=== PATIENT | female | born 1975 | race Caucasian/White ===

== ENCOUNTER 2022-12-08 17:45 | Emergency (ER) | payer MEDICAID ==
[~2022-12-08] VITALS: Ht 167.6 cm; Wt 65.9 kg
[2022-12-08 17:47] VITALS: BP 133/63
[2022-12-08 19:20] LABS: BASOPHILS % (AUTO) 0.2 % (0.0-2.0); EOSINOPHILS % (AUTO) 0.6 % (1.0-6.0); HEMATOCRIT 27.2 % (36-46); HEMOGLOBIN 9.1 g/dL (12.0-16.0); LYMPHOCYTES # (AUTO) 0.8 K/uL (1.0-4.8); LYMPHOCYTES % (AUTO) 22.6 % (22.0-44.0); MEAN CORPUSCULAR HGB CONC 33.5 G/dL (31.0-37.0); MEAN CORPUSCULAR VOLUME 105 fL (80-100); MONOCYTES # (AUTO) 0.4 K/uL (0.1-1.0); MONOCYTES % (AUTO) 13.3 % (2.0-9.0); NEUTROPHILS # (AUTO) 2.1 K/uL (1.8-7.7); NEUTROPHILS % (AUTO) 63.3 % (40.0-70.0); PLATELET COUNT (AUTO) 59 K/uL (150-450); RED CELL DISTRIBUTION WIDTH 16.7 % (11.5-14.5)
[2022-12-08 19:23] LABS: ANION GAP 5 mmol/L (8-16); CALCIUM, TOTAL 8.9 mg/dL (8.8-10.5); CARBON DIOXIDE 26 mmol/L (22-29); CHLORIDE 107 mmol/L (98-107); CREATININE 0.85 mg/dL (0.60-1.30); GLOMERULAR FILTR. RATE CALC > 60 mL/min (>60); GLUCOSE,RANDOM 95 mg/dL (70-110); POTASSIUM 4.2 mmol/L (3.5-5.1); SODIUM SERUM 138 mmol/L (136-145); UREA NITROGEN, BLOOD 12 mg/dL (7-18)
[2022-12-08 19:28] LABS: ALANINE AMINOTRANSFERASE 36 U/L (12-78); ALBUMIN 3.2 g/dL (3.4-5.0); ALKALINE PHOSPHATASE 200 U/L (46-116); ASPARTATE AMINOTRANSFERASE 58 U/L (15-37); BILIRUBIN,TOTAL 1.2 mg/dL (0.1-1.0); TOTAL PROTEIN, SERUM 7.5 g/dL (6.4-8.2)
[2022-12-08] MEDS ORDERED: FURO20TA4 PO (21:01)
[2022-12-08] MEDS ORDERED: CIPR500T10 PO (21:01)
[2022-12-08] MEDS ORDERED: MULT-1366 PO (21:01)
[2022-12-08] MEDS ORDERED: HYDR-4527 PO (21:01)
[2022-12-08] MEDS ORDERED: FOLI-130 PO ×2 (21:01→21:53)
[2022-12-08] MEDS ORDERED: PANT40TA54 PO (21:01)
[2022-12-08] MEDS ORDERED: SPIR50TA27 PO ×2 (21:01→21:53)
[2022-12-08] MEDS ORDERED: ONDA4TAB96 PO (21:01)
[2022-12-08] MEDS ORDERED: LORazepam 1 MG TABLET PO ONE (21:45)
[2022-12-08] MEDS ORDERED: OLANZapine 5 MG TABLET PO ONE (21:45)
[2022-12-08] MEDS ORDERED: FURO20 PO (21:53)
[2022-12-08] MEDS ORDERED: PANT-31 PO (21:53)
[2022-12-08] MEDS ORDERED: PERCT PO (21:53)
[2022-12-08] MEDS ORDERED: PHYT100T PO (21:53)
[2022-12-08] MEDS ORDERED: ESCI5TAB16 PO (21:53)
[2022-12-08] MEDS ORDERED: ONDA-104 PO (21:53)
[2022-12-08] MEDS ORDERED: THIA100T80 PO (21:53)
[2022-12-09] MEDS ORDERED: GABA-1216 PO (14:58)
[2022-12-09] MEDS ORDERED: NALO0.4V7 MISC (14:58)
[2022-12-09] MEDS ORDERED: RIFAX550 PO (14:58)
[2022-12-09] MEDS ORDERED: LACT10SO85 PO (14:58)
[2022-12-09] MEDS ORDERED: AMYL1CAP63 PO (14:58)
[2022-12-09] MEDS ORDERED: CHOL400C8 PO (14:58)
[2022-12-09] MEDS ORDERED: NALO4SPR NASAL (17:27)
[2022-12-09] MEDS ORDERED: OXYC10TA48 PO (17:31)
== END 2022-12-08 22:26 | disposition home or self-care (01) ==
LOC: EMS 17:45
DX: F69 Unspecified disorder of adult personality and behavior (principal); F32.9 Major depressive disorder, single episode, unspecified; K74.60 Unspecified cirrhosis of liver; D61.818 Other pancytopenia; Z96.649 Presence of unspecified artificial hip joint; Z88.0 Allergy status to penicillin
CPT/HCPCS: 99283; 80053; 85025; G0480

== ENCOUNTER 2022-12-09 14:44 | Emergency (ER) | payer MEDICAID ==
[~2022-12-09] VITALS: Ht 167.6 cm; Wt 72.7 kg
[~2022-12-09 14:44] MED LIST: CIPR500T10 PO; ESCI5TAB16 PO; FOLI-130 PO; FURO20 PO; FURO20TA4 PO; HYDR-4527 PO; MULT-1366 PO; ONDA-104 PO; ONDA4TAB96 PO; PANT-31 PO; PANT40TA54 PO; PERCT PO; PHYT100T PO; SPIR50TA27 PO; THIA100T80 PO
[2022-12-09] MEDS ORDERED: GABA-1216 PO (14:58)
[2022-12-09] MEDS ORDERED: NALO0.4V7 MISC (14:58)
[2022-12-09] MEDS ORDERED: LACT10SO85 PO (14:58)
[2022-12-09] MEDS ORDERED: AMYL1CAP63 PO (14:58)
[2022-12-09] MEDS ORDERED: CHOL400C8 PO (14:58)
[2022-12-09] MEDS ORDERED: RIFAX550 PO (14:58)
[2022-12-09] MEDS ORDERED: NALO4SPR NASAL (17:27)
[2022-12-09] MEDS ORDERED: OXYC10TA48 PO (17:31)
[2022-12-09 17:50] VITALS: BP 122/72
== END 2022-12-09 18:20 | disposition home or self-care (01) ==
LOC: EMS 14:44
DX: M25.552 Pain in left hip (principal); M25.551 Pain in right hip; G89.29 Other chronic pain; Z96.649 Presence of unspecified artificial hip joint; Z88.0 Allergy status to penicillin; Z88.8 Allergy status to other drugs, medicaments and biological substances
CPT/HCPCS: 99283; Z7502

== ENCOUNTER 2022-12-13 14:45 | Emergency (ER) | payer MEDICAID ==
[~2022-12-13] VITALS: Ht 167.6 cm; Wt 65.9 kg
[~2022-12-13 14:45] MED LIST changes: +AMYL1CAP63 PO; +CHOL400C8 PO; -FURO20 PO; +GABA-1216 PO; +LACT10SO85 PO; +NALO0.4V7 MISC; +NALO4SPR NASAL; -ONDA-104 PO; +OXYC10TA48 PO; +RIFAX550 PO
[2022-12-13 14:46] VITALS: BP 111/73
[2022-12-13] MEDS ORDERED: OxyCODONE HCL/ACETAMINOPHEN 5-325 MG TABLET PO ONE (15:30)
== END 2022-12-13 15:40 | disposition home or self-care (01) ==
LOC: EMS 14:45
DX: M25.562 Pain in left knee (principal); G89.4 Chronic pain syndrome; K76.9 Liver disease, unspecified; Z98.890 Other specified postprocedural states; Z88.0 Allergy status to penicillin; Z76.5 Malingerer [conscious simulation]; Z88.8 Allergy status to other drugs, medicaments and biological substances
CPT/HCPCS: 99283

== ENCOUNTER 2023-09-29 22:25 | Emergency (ER) | payer MEDICAID ==
[~2023-09-29] VITALS: Ht 167.6 cm; Wt 72.0 kg
[~2023-09-29 22:25] MED LIST changes: +CHLO10CA7 PO; +CHOL10CA2 PO; -CHOL400C8 PO; -CIPR500T10 PO; -NALO0.4V7 MISC; -OXYC10TA48 PO
[2023-09-29 23:55] LABS: BASOPHILS % (AUTO) 0.6 % (0.0-2.0); EOSINOPHILS % (AUTO) 1.1 % (1.0-6.0); HEMATOCRIT 34.7 % (36-46); HEMOGLOBIN 11.1 g/dL (12.0-16.0); LYMPHOCYTES % (AUTO) 25.7 % (22.0-44.0); MEAN CORPUSCULAR HEMOGLOBIN 29.5 pg (26.0-34.0); MEAN CORPUSCULAR HGB CONC 31.9 G/dL (31.0-37.0); MEAN CORPUSCULAR VOLUME 93 fL (80-100); MONOCYTES # (AUTO) 0.4 K/uL (0.1-1.0); MONOCYTES % (AUTO) 5.5 % (2.0-9.0); NEUTROPHILS # (AUTO) 5.2 K/uL (1.8-7.7); NEUTROPHILS % (AUTO) 67.1 % (40.0-70.0); PLATELET COUNT (AUTO) 139 K/uL (150-450); RED BLOOD CELL COUNT(AUTO) 3.75 MIL/uL (4.00-5.20); RED CELL DISTRIBUTION WIDTH 21.8 % (11.5-14.5); WHITE BLOOD COUNT (AUTO) 7.8 K/uL (4.5-11.0)
[2023-09-30 00:07] LABS: ANION GAP 13 mmol/L (8-16); CALCIUM, TOTAL 8.1 mg/dL (8.8-10.5); CARBON DIOXIDE 22 mmol/L (22-29); CHLORIDE 105 mmol/L (98-107); GLOMERULAR FILTR. RATE CALC > 60 mL/min (>60); GLUCOSE,RANDOM 128 mg/dL (70-110); POTASSIUM 3.6 mmol/L (3.5-5.1); SODIUM SERUM 140 mmol/L (136-145); UREA NITROGEN, BLOOD 8 mg/dL (7-18)
[2023-09-30 00:13] LABS: ALANINE AMINOTRANSFERASE 28 U/L (12-78); ALBUMIN 2.9 g/dL (3.4-5.0); ALKALINE PHOSPHATASE 432 U/L (46-116); ASPARTATE AMINOTRANSFERASE 48 U/L (15-37); BILIRUBIN,TOTAL 1.3 mg/dL (0.1-1.0); TOTAL PROTEIN, SERUM 7.7 g/dL (6.4-8.2)
[2023-09-30 00:18] LABS: ALCOHOL, BLOOD (SERUM) 377 mg/dL (0-10)
[2023-09-30 00:23] LABS: LIPASE 39 U/L (16-77)
[2023-09-30] MEDS: MAGNESIUM SULFATE 2 GM, MVI, ADULT NO.1 WITH VIT K 10 ML, THIAMINE 100 MG, FOLIC ACID 1... IV ONE (01:54)
[2023-09-30 06:22] LABS: AMPHET/METH SCREEN,URINE NEGATIVE (NEGATIVE); BARBITURATE SCREEN, URINE NEGATIVE (NEGATIVE); BENZODIAZEPINES SCREEN,URINE POSITIVE (NEGATIVE); CANNABINOID SCREEN,URINE NEGATIVE (NEGATIVE); COCAINE SCREEN,URINE NEGATIVE (NEGATIVE); METHADONE SCREEN, URINE NEGATIVE (NEGATIVE); OPIATE SCREEN,URINE NEGATIVE (NEGATIVE); PHENCYCLIDINE SCREEN,URINE NEGATIVE (NEGATIVE)
[2023-09-30 06:31] LABS: ALCOHOL, URINE DRUG SCREEN POSITIVE (NEGATIVE)
[2023-09-30] MEDS ORDERED: QUET25TA PO (06:47)
[2023-09-30 06:54] LABS: INFLUENZA A-RTPCR,COMBO NEGATIVE (NEGATIVE); INFLUENZA B-RTPCR,COMBO NEGATIVE (NEGATIVE); RESPIRATORY SYNCYTIAL VRS-PCR NEGATIVE (NEGATIVE); SARS COVID19 RTPCR, COMBO NEGATIVE (NEGATIVE)
[2023-09-30 09:42] VITALS: BP 105/54; PULSE 92; RESP 16; TEMP 98.7
[2023-09-30] MEDS: IBUPROFEN 600 MG TABLET PO ONE (09:59)
[2023-09-30] MEDS: ONDANSETRON HCL 4 MG TABLET PO ONE (09:59)
== END 2023-09-30 12:53 | disposition home or self-care (01) ==
LOC: EMS 22:25
DX: F10.229 Alcohol dependence with intoxication, unspecified (principal); R45.851 Suicidal ideations; F17.210 Nicotine dependence, cigarettes, uncomplicated; G89.29 Other chronic pain; Z98.890 Other specified postprocedural states; Z88.0 Allergy status to penicillin; Z88.8 Allergy status to other drugs, medicaments and biological substances; Z20.822 Contact with and (suspected) exposure to COVID-19; Y90.9 Presence of alcohol in blood, level not specified
CPT/HCPCS: 99291; 0241U; 80053; 83690; 85025; 36415; 80307; 96365; G0480; J3490 ×2; Q0162; J3411; J3475; J7030

== ENCOUNTER 2024-02-28 00:09 | Emergency (ER) | payer MEDICAID ==
[~2024-02-28 00:09] MED LIST changes: -AMYL1CAP63 PO; -CHLO10CA7 PO; -ESCI5TAB16 PO; -FOLI-130 PO; -FURO20TA4 PO; -GABA-1216 PO; -HYDR-4527 PO; -LACT10SO85 PO; -NALO4SPR NASAL; -ONDA4TAB96 PO; -PANT-31 PO; -PERCT PO; -PHYT100T PO; -RIFAX550 PO; -SPIR50TA27 PO; +SULF-261 PO; -THIA100T80 PO
[2024-02-28 01:00] VITALS: TEMP 97.3
[2024-02-28 01:15] LABS: BASOPHILS % (AUTO) 0.5 % (0.0-2.0); EOSINOPHILS % (AUTO) 0.9 % (1.0-6.0); HEMATOCRIT 34.1 % (36-46); HEMOGLOBIN 11.3 g/dL (12.0-16.0); LYMPHOCYTES # (AUTO) 1.2 K/uL (1.0-4.8); LYMPHOCYTES % (AUTO) 19.8 % (22.0-44.0); MEAN CORPUSCULAR HEMOGLOBIN 34.3 pg (26.0-34.0); MEAN CORPUSCULAR VOLUME 104 fL (80-100); MONOCYTES # (AUTO) 0.7 K/uL (0.1-1.0); MONOCYTES % (AUTO) 11.9 % (2.0-9.0); NEUTROPHILS # (AUTO) 4.1 K/uL (1.8-7.7); NEUTROPHILS % (AUTO) 66.9 % (40.0-70.0); PLATELET COUNT (AUTO) 168 K/uL (150-450); RED BLOOD CELL COUNT(AUTO) 3.29 MIL/uL (4.00-5.20); WHITE BLOOD COUNT (AUTO) 6.1 K/uL (4.5-11.0)
[2024-02-28 01:20] LABS: ANION GAP 12 mmol/L (8-16); CARBON DIOXIDE 25 mmol/L (22-29); CHLORIDE 99 mmol/L (98-107); CREATININE 0.71 mg/dL (0.60-1.30); GLOMERULAR FILTR. RATE CALC > 60 mL/min (>60); GLUCOSE,RANDOM 115 mg/dL (70-110); LIPASE 21 U/L (16-77); POTASSIUM 3.7 mmol/L (3.5-5.1); SODIUM SERUM 136 mmol/L (136-145); UREA NITROGEN, BLOOD 2 mg/dL (7-18)
[2024-02-28 01:22] LABS: ALCOHOL, BLOOD (SERUM) 167 mg/dL (0-10)
[2024-02-28 01:29] LABS: LACTIC ACID 1.7 mmol/L (0.4-2.0)
[2024-02-28] MEDS: MAGNESIUM SULFATE 2 GM, MVI, ADULT NO.1 WITH VIT K 10 ML, THIAMINE 100 MG, FOLIC ACID 1... IV ONE (01:33)
[2024-02-28] MEDS: ONDANSETRON HCL 4 MG/2 ML VIAL IVP ONE ×2 (01:34→05:16)
[2024-02-28] MEDS: LORazepam 2 MG/ML VIAL IVP ONE ×2 (01:34→05:16)
[2024-02-28 02:01] LABS: RBC MORPHOLOGY COMMENT ABNORMAL RBC MORPH
[2024-02-28] MEDS ORDERED: IOHEXOL 350 MG/ML 100 ML VIAL ONE (03:35)
[2024-02-28] MEDS ORDERED: SODIUM CHLORIDE 0.9% 100 ML ONE (03:35)
[2024-02-28 05:00] VITALS: BP 109/64; PULSE 89; RESP 16
[2024-02-28 05:35] LABS: ALANINE AMINOTRANSFERASE 47 U/L (12-78); ALBUMIN 2.9 g/dL (3.4-5.0); ALKALINE PHOSPHATASE 745 U/L (46-116); ASPARTATE AMINOTRANSFERASE 98 U/L (15-37); BILIRUBIN,TOTAL 2.1 mg/dL (0.1-1.0); TOTAL PROTEIN, SERUM 8.3 g/dL (6.4-8.2)
== END 2024-02-28 07:10 | disposition admitted as inpatient to this hospital (09) ==
LOC: EMS 00:09 → EDBEDREQ 04:58 → EMS 07:10
DX: R55 Syncope and collapse (principal); K70.30 Alcoholic cirrhosis of liver without ascites; K29.20 Alcoholic gastritis without bleeding; F10.239 Alcohol dependence with withdrawal, unspecified; I85.00 Esophageal varices without bleeding; K21.9 Gastro-esophageal reflux disease without esophagitis; G89.29 Other chronic pain; F17.210 Nicotine dependence, cigarettes, uncomplicated; Z88.0 Allergy status to penicillin
CPT/HCPCS: 99285; 74177; 96365; 96375; 71045; 80048; 80076; 83605; 83690; 84703; 85025; 36415; 93005; 96376; G0480; Q9967; J2060; J3490 ×2; J2405; J3411; J3475; J7030; J7050

== ENCOUNTER 2024-09-04 09:59 | Emergency (ER) | payer MEDICAID ==
[~2024-09-04] VITALS: Ht 167.6 cm; Wt 63.6 kg
[~2024-09-04 09:59] MED LIST changes: +PANT-31 PO; -PANT40TA54 PO; -SULF-261 PO
[2024-09-04] MEDS ORDERED: FURO40TA5 PO (10:05)
[2024-09-04] MEDS ORDERED: SPIR50TA27 PO (10:05)
[2024-09-04] MEDS ORDERED: PANT40TA54 PO (10:05)
[2024-09-04] MEDS ORDERED: THIA100T92 PO (10:05)
[2024-09-04] MEDS ORDERED: ESCI5TAB16 PO (10:05)
[2024-09-04] MEDS ORDERED: OXYC5TAB3 PO (10:05)
[2024-09-04] MEDS ORDERED: QUET25TA36 PO (10:05)
[2024-09-04 10:09] VITALS: BP 122/84; PULSE 106; RESP 18; TEMP 98.2; O2SAT 99
[2024-09-04 11:50] LABS: BASOPHILS % (AUTO) 0.3 % (0.0-2.0); EOSINOPHILS % (AUTO) 0 % (1.0-6.0); HEMATOCRIT 31.3 % (36-46); HEMOGLOBIN 10.2 g/dL (12.0-16.0); LYMPHOCYTES # (AUTO) 0.6 K/uL (1.0-4.8); LYMPHOCYTES % (AUTO) 10.7 % (22.0-44.0); MEAN CORPUSCULAR HEMOGLOBIN 31.2 pg (26.0-34.0); MEAN CORPUSCULAR HGB CONC 32.5 G/dL (31.0-37.0); MEAN CORPUSCULAR VOLUME 96 fL (80-100); MONOCYTES # (AUTO) 0.4 K/uL (0.1-1.0); MONOCYTES % (AUTO) 7.3 % (2.0-9.0); NEUTROPHILS # (AUTO) 4.4 K/uL (1.8-7.7); NEUTROPHILS % (AUTO) 81.7 % (40.0-70.0); PLATELET COUNT (AUTO) 123 K/uL (150-450); RED BLOOD CELL COUNT(AUTO) 3.26 MIL/uL (4.00-5.20); RED CELL DISTRIBUTION WIDTH 20.5 % (11.5-14.5); WHITE BLOOD COUNT (AUTO) 5.4 K/uL (4.5-11.0)
[2024-09-04 11:56] LABS: ANION GAP 17 mmol/L (8-16); CALCIUM, TOTAL 8.1 mg/dL (8.8-10.5); CARBON DIOXIDE 19 mmol/L (22-29); CHLORIDE 102 mmol/L (98-107); CREATININE 0.79 mg/dL (0.60-1.30); GLOMERULAR FILTR. RATE CALC > 60 mL/min (>60); GLUCOSE,RANDOM 106 mg/dL (70-110); POTASSIUM 3.8 mmol/L (3.5-5.1); SODIUM SERUM 138 mmol/L (136-145); UREA NITROGEN, BLOOD 9 mg/dL (7-18)
[2024-09-04 12:10] LABS: ALCOHOL, BLOOD (SERUM) 304 mg/dL (0-10)
[2024-09-04] MEDS: THIAMINE 100 MG TABLET PO ONE (12:59)
== END 2024-09-04 13:17 | disposition home or self-care (01) ==
LOC: EMS 10:00
DX: F10.229 Alcohol dependence with intoxication, unspecified (principal); E88.89 Other specified metabolic disorders; F32.A Depression, unspecified; G89.29 Other chronic pain; F17.210 Nicotine dependence, cigarettes, uncomplicated; Z98.890 Other specified postprocedural states; Z79.899 Other long term (current) drug therapy; Z88.0 Allergy status to penicillin; Z88.1 Allergy status to other antibiotic agents
CPT/HCPCS: 99283; 99406; 80048; 85025; G0480

== ENCOUNTER 2025-01-19 12:59 | Inpatient (IN) | payer MEDICAID ==
[~2025-01-19] VITALS: Ht 167.6 cm; Wt 68.2 kg
[~2025-01-19 12:59] MED LIST changes: -CHOL10CA2 PO; +ESCI5TAB16 PO; +FURO40TA5 PO; -MULT-1366 PO; +OXYC5TAB3 PO; -PANT-31 PO; +PANT40TA54 PO; +QUET25TA36 PO; +SPIR50TA27 PO; +THIA100T92 PO
[2025-01-19] MEDS ORDERED: HYDR25TA83 PO (13:10)
[2025-01-19 13:29] LABS: COVID AG,FIA SOURCE NASAL SWAB
[2025-01-19 13:37] LABS: BASOPHILS % (AUTO) 0.3 % (0.0-2.0); EOSINOPHILS % (AUTO) 0.2 % (1.0-6.0); HEMATOCRIT 37.4 % (36-46); HEMOGLOBIN 12.1 g/dL (12.0-16.0); LYMPHOCYTES # (AUTO) 0.7 K/uL (1.0-4.8); LYMPHOCYTES % (AUTO) 13.2 % (22.0-44.0); MEAN CORPUSCULAR HEMOGLOBIN 31.2 pg (26.0-34.0); MEAN CORPUSCULAR HGB CONC 32.3 G/dL (31.0-37.0); MEAN CORPUSCULAR VOLUME 97 fL (80-100); MONOCYTES # (AUTO) 0.3 K/uL (0.1-1.0); MONOCYTES % (AUTO) 6.7 % (2.0-9.0); NEUTROPHILS % (AUTO) 79.6 % (40.0-70.0); RED BLOOD CELL COUNT(AUTO) 3.87 MIL/uL (4.00-5.20); RED CELL DISTRIBUTION WIDTH 20.5 % (11.5-14.5)
[2025-01-19 13:46] LABS: ANION GAP 9 mmol/L (8-16); CALCIUM, TOTAL 7.9 mg/dL (8.8-10.5); CARBON DIOXIDE 27 mmol/L (22-29); CHLORIDE 99 mmol/L (98-107); CREATININE 0.88 mg/dL (0.60-1.30); GLOMERULAR FILTR. RATE CALC > 60 mL/min (>60); GLUCOSE,RANDOM 113 mg/dL (70-110); POTASSIUM 3.6 mmol/L (3.5-5.1); SODIUM SERUM 135 mmol/L (136-145); UREA NITROGEN, BLOOD 3 mg/dL (7-18)
[2025-01-19 13:48] LABS: INFLUENZA TYPE A NEGATIVE FOR TYPE A (NEGATIVE); INFLUENZA TYPE B NEGATIVE FOR TYPE B (NEGATIVE); SARS-COV2 (COVID) ANTIGEN,FIA Negative (Negative)
[2025-01-19 14:00] LABS: PLATELET COUNT (AUTO) 88 K/uL (150-450); PLATELET MORPHOLOGY COMMENT LARGE PLTS PRESENT
[2025-01-19] MEDS ORDERED: BISMUTH SUBSALICYLATE 525 MG/30 ML SUSPENSION UDCUP PO PRN (15:30)
[2025-01-19] MEDS ORDERED: MAGNESIUM HYDROXIDE SUSPENSION 30 ML UDCUP PO PRN (15:30)
[2025-01-19] MEDS ORDERED: LORazepam 2 MG/ML VIAL IVP PRN (15:30)
[2025-01-19] MEDS: LORazepam 2 MG/ML VIAL IVP PRN (16:16)
[2025-01-19] MEDS: ACETAMINOPHEN 325 MG TABLET PO PRN (16:16)
[2025-01-19] MEDS: 1: MAGNESIUM SULFATE 2 GM, MVI, ADULT NO.1 WITH VIT K 10 ML, THIAMINE 100 MG, FOLIC ACID IV SCH (16:16)
[2025-01-19] MEDS: ONDANSETRON HCL 4 MG/2 ML VIAL IVP PRN (16:16)
[2025-01-19 21:21] VITALS: BP 129/66; PULSE 98; RESP 16; TEMP 98.4; O2SAT 97
[2025-01-19] MEDS: FAMOTIDINE 20 MG TABLET PO SCH (22:27)
[2025-01-19] MEDS ORDERED: PROP10TA73 PO (23:47)
[2025-01-19] MEDS ORDERED: TRAM50TA5 PO (23:47)
[2025-01-19] MEDS ORDERED: FOLI0.4T14 PO (23:47)
[2025-01-19] MEDS ORDERED: QUET25TA PO (23:47)
[2025-01-19] MEDS ORDERED: RIFAX550 PO (23:47)
[2025-01-19] MEDS ORDERED: HYDR-3421 PO (23:47)
[2025-01-20 04:34] VITALS: BP 112/80; PULSE 94; RESP 18; TEMP 98.4; O2SAT 96
[2025-01-20] MEDS ORDERED: SODIUM CHLORIDE 0.9% 1,000 ML ONE (05:35)
[2025-01-20 07:52] VITALS: BP 107/67; PULSE 96; RESP 20; TEMP 97.9; O2SAT 98
[2025-01-20 11:18] LABS: APPEARANCE,URINE TURBID (CLEAR); COLOR,URINE DARK YELLOW (YELLOW); GLUCOSE, URINE (UA) NEGATIVE (NEGATIVE); KETONES,URINE NEGATIVE (NEGATIVE); LEUKOCYTE ESTERASE ,URINE LARGE (NEGATIVE); NITRATE,URINE NEGATIVE (NEGATIVE); OCCULT BLOOD,URINE LARGE (NEGATIVE); PROTEIN,URINE 30-70 mg/dL (NEGATIVE); SPECIFIC GRAVITIY, URINE 1.015 (1.003-1.030); UROBILINOGEN,URINE <=1.0 mg/dL (<=1.0)
[2025-01-20 11:19] LABS: BILIRUBIN,URINE SMALL (NEGATIVE)
[2025-01-20 11:24] LABS: BACTERIA,URINE Many /HPF (None Seen); SQUAMOUS EPITHELIAL CELL,UR Many /LPF (None Seen); WBC,URINE 51-100 /HPF (0-5)
[2025-01-20 11:28] LABS: ALCOHOL, URINE DRUG SCREEN POSITIVE (NEGATIVE); AMPHET/METH SCREEN,URINE NEGATIVE (NEGATIVE); BARBITURATE SCREEN, URINE POSITIVE (NEGATIVE); BENZODIAZEPINES SCREEN,URINE NEGATIVE (NEGATIVE); CANNABINOID SCREEN,URINE NEGATIVE (NEGATIVE); COCAINE SCREEN,URINE NEGATIVE (NEGATIVE); METHADONE SCREEN, URINE NEGATIVE (NEGATIVE); OPIATE SCREEN,URINE NEGATIVE (NEGATIVE); PHENCYCLIDINE SCREEN,URINE NEGATIVE (NEGATIVE)
[2025-01-20] MEDS: CefTRIAXone 1 GM/DEXTROSE 50 ML IV SCH (13:15)
[2025-01-20 16:15] VITALS: BP 127/78; PULSE 97; RESP 20; TEMP 98.2; O2SAT 96
[2025-01-20 19:56] VITALS: BP 126/85; PULSE 91; RESP 18; TEMP 98; O2SAT 98
[2025-01-20] MEDS: ZOLPIDEM TARTRATE 5 MG TABLET PO PRN (22:26)
[2025-01-20 23:57] VITALS: BP 127/80; PULSE 92; RESP 18; TEMP 97.9; O2SAT 97
[2025-01-21 04:36] VITALS: BP 126/79; PULSE 98; RESP 18; TEMP 98.2; O2SAT 99
[2025-01-21 09:23] VITALS: BP 116/75; PULSE 104; RESP 17; TEMP 98.1; O2SAT 97
[2025-01-21] MEDS ORDERED: CIPR250T6 PO ×2 (10:02→10:06)
[2025-01-21 10:40] LABS: BASOPHILS % (AUTO) 0.4 % (0.0-2.0); EOSINOPHILS % (AUTO) 1.5 % (1.0-6.0); HEMATOCRIT 30.1 % (36-46); LYMPHOCYTES # (AUTO) 0.6 K/uL (1.0-4.8); LYMPHOCYTES % (AUTO) 20.2 % (22.0-44.0); MEAN CORPUSCULAR HEMOGLOBIN 32.6 pg (26.0-34.0); MEAN CORPUSCULAR HGB CONC 33.3 G/dL (31.0-37.0); MEAN CORPUSCULAR VOLUME 98 fL (80-100); MONOCYTES # (AUTO) 0.5 K/uL (0.1-1.0); MONOCYTES % (AUTO) 15.4 % (2.0-9.0); NEUTROPHILS # (AUTO) 1.8 K/uL (1.8-7.7); NEUTROPHILS % (AUTO) 62.5 % (40.0-70.0); PLATELET COUNT (AUTO) 36 K/uL (150-450); RED BLOOD CELL COUNT(AUTO) 3.09 MIL/uL (4.00-5.20); RED CELL DISTRIBUTION WIDTH 20.3 % (11.5-14.5); WHITE BLOOD COUNT (AUTO) 2.9 K/uL (4.5-11.0)
[2025-01-21 10:50] LABS: ANION GAP 8 mmol/L (8-16); CALCIUM, TOTAL 8.3 mg/dL (8.8-10.5); CARBON DIOXIDE 25 mmol/L (22-29); CHLORIDE 101 mmol/L (98-107); CREATININE 0.85 mg/dL (0.60-1.30); GLOMERULAR FILTR. RATE CALC > 60 mL/min (>60); GLUCOSE,RANDOM 76 mg/dL (70-110); POTASSIUM 3.7 mmol/L (3.5-5.1); SODIUM SERUM 134 mmol/L (136-145); UREA NITROGEN, BLOOD 6 mg/dL (7-18)
[2025-01-21 11:04] LABS: PLATELET MORPHOLOGY COMMENT LARGE PLTS PRESENT
[2025-01-21 11:07] LABS: RBC MORPHOLOGY COMMENT ABNORMAL RBC MORPH
[2025-01-21] MEDS ORDERED: SODIUM CHLORIDE 0.9% 250 ML IV ONE (12:20)
== END 2025-01-21 15:15 | disposition home or self-care (01) | DRG 249 ==
LOC: EMS 13:00 → EDH 15:29 → 4E 21:21
PROVIDERS: ADMIT Internal Medicine; ATTEND Internal Medicine
DX: A08.4 Viral intestinal infection, unspecified (principal); D69.6 Thrombocytopenia, unspecified; K70.30 Alcoholic cirrhosis of liver without ascites; N39.0 Urinary tract infection, site not specified; K29.20 Alcoholic gastritis without bleeding; Z20.822 Contact with and (suspected) exposure to COVID-19; F32.A Depression, unspecified; F10.139 Alcohol abuse with withdrawal, unspecified; F15.10 Other stimulant abuse, uncomplicated; Z88.1 Allergy status to other antibiotic agents; Z88.0 Allergy status to penicillin; Z88.8 Allergy status to other drugs, medicaments and biological substances; Z87.891 Personal history of nicotine dependence
CPT/HCPCS: 80048; 80307; 81001; 85025; 87077; 87086; 87186; 87804; 99285; G0378; J0696; J2060; J2405; J3411; J3475; J3490; J7030; J7050

== ENCOUNTER 2025-06-03 17:22 | Inpatient (IN) | payer MEDICAID ==
[~2025-06-03] VITALS: Ht 162.6 cm; Wt 69.9 kg
[2025-06-03] VITALS (8 sets, daily range): BP systolic 70–102; BP diastolic 25–76; PULSE 106–121; RESP 28–33; TEMP 89.8–90.6; O2SAT 100
[~2025-06-03 17:22] MED LIST changes: +CIPR250T6 PO; -ESCI5TAB16 PO; +FOLI0.4T3 PO; -FURO40TA5 PO; -OXYC5TAB3 PO; -QUET25TA36 PO; -SPIR50TA27 PO; -THIA100T92 PO
[2025-06-03 17:43] LABS: ABG BASE EXCESS -28.9 mmol/L (-2.0-3.0); ABG CARBOXYHEMOGLOBIN 0.4 % (0.5-1.5); ABG HCO3 4.9 mmol/L (21.0-28.0); ABG METHEMOGLOBIN 1.0 % (0.0-1.5); ABG OXYGEN CONTENT 13.8 mL/dL (15.0-23.0); ABG OXYGEN SATURATION 92.8 % (94.0-98.0); ABG OXYHEMOGLOBIN 91.5 % (94.0-98.0); ABG PCO2 27 mmHg (32.0-45.0); ABG TOTAL HEMOGLOBIN 10.6 G/dL (12.0-16.0); FRACTIONATED INSPIRED OXYGEN 90.0 % (21-100.0); PO2, ARTERIAL BG 81.5 mmHg (83.0-108.0); SOURCE, BLOOD GAS ARTERIAL; TEMPERATURE, FAHRENHEIT, BG 87.6 FAHREN (96.0-98.6)
[2025-06-03 17:45] LABS: ABG A-A DIFF O2 545.2 mmHg (10-20.0); ABG PH 6.877 (7.350-7.450); ALLEN TEST, BLOOD GAS Positive; FLOW, BLOOD GAS 15.00 L/min (0.00-15.00); O2 DEVICE,BLOOD GAS NRB (ROOM AIR); SITE, BLOOD GAS RT RADIAL
[2025-06-03] MEDS ORDERED: SODIUM BICARBONATE [ADULT] 8.4% 50 MEQ/50 ML SYRINGE IVP ONE (17:50)
[2025-06-03] MEDS ORDERED: 0.9% SODIUM CHLORIDE 10 ML SYRINGE IVP ONE (17:54)
[2025-06-03] MEDS ORDERED: IOHEXOL 350 MG/ML 100 ML VIAL ONE (17:55)
[2025-06-03] MEDS ORDERED: SODIUM CHLORIDE 0.9% 100 ML ONE (17:55)
[2025-06-03] MEDS: SODIUM BICARBONATE 50 MEQ/50 ML VIAL IVP ONE (17:56)
[2025-06-03] MEDS: SODIUM CHLORIDE 0.9% 1,000 ML IV ONE (17:56)
[2025-06-03] MEDS ORDERED: NOREPINEPHRINE 8 MG/0.9 % NACL 250 ML IV ONE (18:02)
[2025-06-03] MEDS ORDERED: PHENYLEPHRINE HCL IN 0.9% NACL 400 MCG/10 ML SYRINGE IVP ONE (18:02)
[2025-06-03] MEDS: DEXTROSE 50%-WATER 25 GM/50 ML SYRINGE IVP ONE (18:11)
[2025-06-03] MEDS: NOREPINEPHRINE 8 MG/0.9 % NACL 250 ML IV PRN (18:12)
[2025-06-03 18:15] LABS: GLUCOMETER DEV NAME(LOC) ERT.7; GLUCOSE,POINT OF CARE 254 MG/DL (70-110)
[2025-06-03 18:19] LABS: CALCIUM, TOTAL 6.6 mg/dL (8.8-10.5); CREATININE 2.14 mg/dL (0.60-1.30); GLOMERULAR FILTR. RATE CALC 24 mL/min (>60); GLUCOSE,RANDOM 397 mg/dL (70-110); SODIUM SERUM 128 mmol/L (136-145); UREA NITROGEN, BLOOD 16 mg/dL (7-18)
[2025-06-03 18:22] LABS: PLATELET COUNT (AUTO) 49 K/uL (150-450); RED BLOOD CELL COUNT(AUTO) 2.63 MIL/uL (4.00-5.20); RED CELL DISTRIBUTION WIDTH 20.2 % (11.5-14.5); WHITE BLOOD COUNT (AUTO) 7.6 K/uL (4.5-11.0)
[2025-06-03 18:30] LABS: TROPONIN I-HIGH SENSITIVITY 12 ng/L (<51)
[2025-06-03 18:45] LABS: LACTIC ACID 27.1 mmol/L (0.4-2.0)
[2025-06-03 18:56] LABS: BAND NEUTROPHILS % (MANUAL) 7 % (0-5); LYMPHOCYTES % (MANUAL) 13 % (22-44); MONOCYTES % (MANUAL) 8 % (2-9); SEGMENTED NEUTROPHILS % 72 % (40-70)
[2025-06-03 18:57] LABS: RBC MORPHOLOGY COMMENT ABNORMAL RBC MORPH
[2025-06-03 19:01] LABS: APPEARANCE,URINE HAZY (CLEAR); GLUCOSE, URINE (UA) NEGATIVE (NEGATIVE); LEUKOCYTE ESTERASE ,URINE LARGE (NEGATIVE); NITRATE,URINE NEGATIVE (NEGATIVE); OCCULT BLOOD,URINE SMALL (NEGATIVE); PH,URINE DRUG SCREEN 5.5 (5.0-8.0); SPECIFIC GRAVITIY, URINE 1.010 (1.003-1.030)
[2025-06-03 19:05] LABS: TOTAL PROTEIN, SERUM 4.8 g/dL (6.4-8.2)
[2025-06-03 19:08] LABS: AMPHET/METH SCREEN,URINE NEGATIVE (NEGATIVE); BARBITURATE SCREEN, URINE NEGATIVE (NEGATIVE); CANNABINOID SCREEN,URINE NEGATIVE (NEGATIVE); COCAINE SCREEN,URINE NEGATIVE (NEGATIVE); METHADONE SCREEN, URINE NEGATIVE (NEGATIVE)
[2025-06-03 19:10] LABS: ALCOHOL, URINE DRUG SCREEN POSITIVE (NEGATIVE)
[2025-06-03 19:13] LABS: SQUAMOUS EPITHELIAL CELL,UR Few /LPF (None Seen)
[2025-06-03] MEDS: VASOPRESSIN 40 UNITS in DEXTROSE 5%-WATER 98 ML IV PRN (19:20)
[2025-06-03 19:42] LABS: ASPARTATE AMINOTRANSFERASE 3690 U/L (15-37)
[2025-06-03 19:54] LABS: ABG BASE EXCESS -26.2 mmol/L (-2.0-3.0); ABG CARBOXYHEMOGLOBIN 0.4 % (0.5-1.5); ABG HCO3 7.1 mmol/L (21.0-28.0); ABG METHEMOGLOBIN 0.9 % (0.0-1.5); ABG OXYGEN CONTENT 19.0 mL/dL (15.0-23.0); ABG OXYGEN SATURATION 99.7 % (94.0-98.0); ABG OXYHEMOGLOBIN 98.4 % (94.0-98.0); ABG TOTAL HEMOGLOBIN 12.9 G/dL (12.0-16.0); FRACTIONATED INSPIRED OXYGEN 100.0 % (21-100.0); SOURCE, BLOOD GAS ARTERIAL; TEMPERATURE, FAHRENHEIT, BG 83.6 FAHREN (96.0-98.6)
[2025-06-03 19:55] LABS: ABG PCO2 18 mmHg (32.0-45.0); ABG PH 7.064 (7.350-7.450); PO2, ARTERIAL BG 392.1 mmHg (83.0-108.0); SITE, BLOOD GAS LFT BRACHIAL
[2025-06-03 19:56] LABS: ABG A-A DIFF O2 320.8 mmHg (10-20.0); FLOW, BLOOD GAS 15.00 L/min (0.00-15.00); O2 DEVICE,BLOOD GAS NON REBREATHER (ROOM AIR)
[2025-06-03] MEDS ORDERED: ACETAMINOPHEN 325 MG TABLET PO PRN (21:15)
[2025-06-03] MEDS ORDERED: HYDROCODONE/ACETAMINOPHEN 5-325 MG TABLET PO PRN (21:15)
[2025-06-03] MEDS ORDERED: ZOLPIDEM TARTRATE 5 MG TABLET PO PRN (21:15)
[2025-06-03] MEDS ORDERED: MORPHINE SULFATE 4 MG/ML SYRINGE IVP PRN (21:15)
[2025-06-03] MEDS ORDERED: ONDANSETRON HCL 4 MG/2 ML VIAL IVP PRN (21:15)
[2025-06-03] MEDS ORDERED: BISACODYL 10 MG RECTAL RECTAL SUPPOSITORY PR PRN (21:15)
[2025-06-03] MEDS ORDERED: MAGNESIUM HYDROXIDE SUSPENSION 30 ML UDCUP PO PRN (21:15)
[2025-06-03] MEDS: *CLINICAL-GENTAMICIN DOSING CLINICAL ONE (21:33)
[2025-06-03 22:20] LABS: GLUCOMETER DEV NAME(LOC) ERT.7; GLUCOSE,POINT OF CARE 161 MG/DL (70-110)
[2025-06-03] MEDS: PHENYLEPHRINE 200 MG/D5%-WATER 250 ML IV PRN (22:47)
[2025-06-03] MEDS: GENTAMICIN 100 MG/NACL ISO-OSM 50 ML IV ONE (22:48)
[2025-06-03] MEDS ORDERED: POTASSIUM CHLORIDE 15 MEQ in NXSTAGE RFP-402 K0/CA3 5,000 ML IRRIG PRN (23:45)
[2025-06-04] MEDS: HEPARIN SODIUM,PORCINE 5,000 UNITS/ML VIAL SQ SCH
[2025-06-04 00:01] VITALS: BP 136/56; PULSE 116; RESP 26; TEMP 91
[2025-06-04 00:29] VITALS: BP 80/60; PULSE 112; RESP 28; TEMP 91.3; O2SAT 99
[2025-06-04] MEDS ORDERED: TRANEXAMIC ACID 1,000 MG in DEXTROSE 5%-WATER 50 ML IV ONE (01:00)
[2025-06-04] MEDS ORDERED: PHYTONADIONE 10 MG in SODIUM CHLORIDE 0.9% 50 ML IV ONE (01:15)
[2025-06-04] MEDS ORDERED: DOCUSATE SODIUM 100 MG CAPSULE PO SCH (09:00)
[2025-06-04] MEDS ORDERED: PANTOPRAZOLE SODIUM 40 MG DR TABLET PO SCH (09:00)
[2025-06-04] MEDS ORDERED: ATROPINE SULFATE 0.1 MG/ML 10 ML SYRINGE IVP ONE (12:00)
[2025-06-04] MEDS ORDERED: 0.9% SODIUM CHLORIDE 10 ML SYRINGE IVP ONE (12:00)
[2025-06-04] MEDS ORDERED: SODIUM BICARBONATE [ADULT] 8.4% 50 MEQ/50 ML SYRINGE IVP ONE (12:00)
[2025-06-04] MEDS ORDERED: CALCIUM CHLORIDE 100 MG/ML 10 ML SYRINGE IVP ONE (12:00)
[2025-06-04] MEDS ORDERED: EPINEPHrine 1:10,000 [1 MG/10 ML] SYRINGE ONE (12:00)
== END 2025-06-04 01:23 | DRG 720 ==
LOC: EMS 17:30 → EDH 21:11 → CMPBEDREQ 23:21
PROVIDERS: ADMIT Internal Medicine; ATTEND Internal Medicine
PROC: 5A1D70Z Performance of Urinary Filtration, Intermittent, Less than 6 Hours Per Day (ICD-10-PCS; principal; 2025-06-03)
PROC: 30233N1 Transfusion of Nonautologous Red Blood Cells into Peripheral Vein, Percutaneous Approach (ICD-10-PCS; 2025-06-03)
PROC: 5A12012 Performance of Cardiac Output, Single, Manual (ICD-10-PCS; 2025-06-04)
PROC: 30233K1 Transfusion of Nonautologous Frozen Plasma into Peripheral Vein, Percutaneous Approach (ICD-10-PCS; 2025-06-04)
DX: A41.9 Sepsis, unspecified organism (principal); K72.00 Acute and subacute hepatic failure without coma; R65.21 Severe sepsis with septic shock; J96.91 Respiratory failure, unspecified with hypoxia; G93.41 Metabolic encephalopathy; J69.0 Pneumonitis due to inhalation of food and vomit; G93.40 Encephalopathy, unspecified; E87.20 Acidosis, unspecified; F32.A Depression, unspecified; G89.29 Other chronic pain; N17.9 Acute kidney failure, unspecified; E87.70 Fluid overload, unspecified; E16.2 Hypoglycemia, unspecified; E72.20 Disorder of urea cycle metabolism, unspecified; Y90.8 Blood alcohol level of 240 mg/100 ml or more; F10.129 Alcohol abuse with intoxication, unspecified; Z88.8 Allergy status to other drugs, medicaments and biological substances; Z88.1 Allergy status to other antibiotic agents; Z88.0 Allergy status to penicillin; Z87.891 Personal history of nicotine dependence
CPT/HCPCS: 36556; 51702; 70450; 71045; 71260; 74177; 76700; 80048; 80076; 80307; 80320; 81001; 82009; 82140; 82693; 82805; 82962; 83605; 83690; 83735; 83880; 84145; 84439; 84443; 84484; 84703; 85025; 85610; 85730; 86850; 86900; 86901; 86920; 86927; 87040; 87077; 87086; 87185; 87186; 87205; 90935; 92950; 93005; 96361; 96365; 96375; 99291; 99292; G0480; G0481; J0169; J0461; J1265; J1580; J1644; J2370; J3430; J3480; J3490; J7050; J7060; P9016; P9017; 36415-L1; 36415-TC